=== PATIENT | male | born 1990 | race Caucasian/White ===

== ENCOUNTER 2021-08-15 07:31 | Outpatient (CLI) | payer OTHER, SELFPAY ==
--- NOTE | 2021-09-05 13:07 | WPDSLEEPSTUD ---
Sleep Study Date of Study: 08/15/21 <Kitty Ervin DO - Last Filed: 09/05/21 13:43> Ordering Provider: Nicholas Dinh MD <Kitty Ervin DO - Last Filed: 09/05/21 13:43> Interpreting Physician: Kitty Ervin DO <Kitty Ervin, DO - Last Filed: 09/05/21 13:43> Sleep Study Type: Polysomnogram <Kitty Ervin DO - Last Filed: 09/05/21 13:43> Height: 1.88 m <Kitty Ervin DO - Last Filed: 09/05/21 13:43> Weight: 190.88 kg <Kitty Ervin DO - Last Filed: 09/05/21 13:43> Body Mass Index: 54.0 <Kitty Ervin DO - Last Filed: 09/05/21 13:43> Neck Circumference (inches): 20.5 <Kitty Ervin DO - Last Filed: 09/05/21 13:43> Hamilton: 5 <Kitty Ervin DO - Last Filed: 09/05/21 13:43> Reason for Sleep Study Sleep-onset insomnia and multiple nighttime awakenings <Kitty Ervin DO - Last Filed: 09/05/21 13:43> Sleep History The patient is a 31-year-old male with hypertension and generalized anxiety disorder that had a PSG ordered by his primary care physician due to sleep onset insomnia and multiple nighttime awakenings. The patient states that he occasionally awakens from sleep short of breath. He rarely awakens at night with heartburn, belching or cough. He constantly snores loud enough that others complain. He occasionally has trouble sleeping when he has a cold. He denies waking up gasping for air throughout the night. He occasionally has breathing problems at night observed by others. He occasionally sweats excessively at night. He rarely notices heart palpitations or irregular heartbeats during the night. He frequently falls asleep during the day but never while driving. He occasionally has trouble at work due to sleepiness. He denies sleep paralysis, cataplexy and hypnagogic / hypnopompic hallucinations. He rarely has nightmares. He frequently has thoughts racing through his mind. He constantly feels sad, depressed and anxious. He frequently has muscular tension. He occasionally notices parts of his body jerk and kicking throughout the night. He frequently has crawling and aching feelings in his legs. He denies leg pain during the night. He occasionally grinds his teeth during sleep but rarely awakens with a morning type pain. He is frequently bothered by pain during the day and awakened by pain during the night. He constantly wakes up feeling stiff in the morning with sore and achy muscles. He goes to bed at 3:00 a.m. on weekdays and between 2 and 3:00 a.m. on the weekends. It takes him a minimum of an hour to fall asleep. He wakes up between 3-5 times per night. When he awakens, he will use the restroom, get a drink or stay in bed. It takes him 15 minutes to fall back asleep. He wakes up between 6 and 7:00 a.m. on both weekdays and weekends. He will stay in bed between 1 and 2 hours after waking up in the morning. He typically gets between 6 and 8 hours of sleep per night. The patient currently lives with his parents and brother. He works the evening shift from 2:00 p.m. to 11:00 p.m.. He does drink caffeinated beverages within 2 hours of bedtime. He does engage in physical exercise before bedtime. He does watch television before falling asleep. He does take naps in the afternoon or evening but they are not refreshing. The patient consumes 4-10 caffeinated beverages per day. He denies alcohol and recreational drug use. <Kitty Ervin, - Last Filed: 09/05/21 13:43> Sleep Procedure This test was performed using the [employer] multiple channel system including EOG, EEG, submental EMG, EKG, nasal and oral airflow using thermistors and nasal pressure sensors, chest and abdominal belts for body position data, and pulse oximetry. Video monitoring was also performed. The study was scored using CMS guidelines. <Kitty Ervin, DO - Last Filed: 09/05/21 13:43> Sleep Architectu
[2021-09-05 13:10] VITALS: BMI 54.0
== END 2021-08-16 06:08 | disposition home or self-care (01) ==
LOC: ANHCSM 07:32
PROVIDERS: PCP Family Medicine; Visit Provider Family Medicine
DX: G47.33 Obstructive sleep apnea (adult) (pediatric) (principal)
CPT/HCPCS: 95810

== ENCOUNTER 2024-04-15 01:32 | Day surgery (SDC) | payer OTHER, SELFPAY ==
[2024-04-03 15:14] VITALS: BMI 43.7
[2024-04-15 07:43] VITALS: BP 145/79; PULSE 79; RESP 18; TEMP 36.5; O2SAT 98; BMI 45.8
--- NOTE | 2024-04-15 07:52 | WPDANESEPP ---
Anes - Eval Pre Procedure Procedure: Operation Date: 04/15/24 09:00 Proposed Procedures p Screening Colonoscopy - Dave Onofre DO Date/Time: 04/15/24 07:52 Pre Op Diagnosis: Family History of Colon Cancer Patient Data Age: 34 Gender: M Height: 1.88 m Weight: 161.8 kg Last Vital Signs Temp 36.5 C 04/15/24 07:43 Pulse 79 04/15/24 07:43 Resp 18 04/15/24 07:43 BP 145/79 H 04/15/24 07:43 Pulse Ox 98 04/15/24 07:43 O2 Del Method Room Air 04/15/24 07:43 Allergies Allergy/AdvReac Type Severity Reaction Status Date / Time No Known Allergies Allergy Verified 04/15/24 07:42 Home Medications Medication Instructions Recorded Confirmed Type losartan 50 mg-hydrochlorothiazide 1 tablet PO DAILY 04/03/24 04/15/24 History 12.5 mg tablet Patient hx anesthesia problems: none Family hx anesthesia problems: none Results Review: All pre-operative results and documents have been reviewed as part of the pre-operative evaluation. [facility] Past Medical History Medical History (Updated 04/15/24 @ 07:54 by Kelli Mendieta CRNA) HTN (hypertension) Morbid obesity with BMI of 40.0-44.9, adult Social History Social History Smoking status: Never smoker Substance use type: does not use Living arrangements: with family Exam Day of Procedure 04/15/24 07:52 Patient weight: morbidly obese Heart: regular rate and rhythm Lungs: clear to auscultation Airway: Mallampati scale class II Neurological: alert and oriented
[2024-04-15] MEDS: LACTATED RINGERS 1,000 ML 150 ML IV CONT (07:57)
--- NOTE | 2024-04-15 08:48 | PM.IMHP ---
H&P: HPI History of Present Illness Date/Time: 04/15/24 08:48 Chief Complaint: family history of colon cancer Narrative: this is a 34-year-old man who presents for colonoscopy. He has never had a colonoscopy before. He has a family history of colon cancer in his sister who was diagnosed at the age of 38. Denies any hematochezia or melena. Review of Systems Review of Systems: All systems reviewed & are unremarkable except as noted in HPI and below Constitutional: Constitutional: Denies chills, Denies fever(s), Denies headache(s) and Denies weight loss Eyes: Eyes: Denies change in vision ENT: Denies dizziness, Denies headache(s), Denies neck mass and Denies throat swelling Cardiovascular: Cardiovascular: Denies chest pain, Denies lightheadedness and Denies dyspnea Respiratory: Respiratory: Denies cough, Denies dyspnea and Denies wheezing Gastrointestinal: Gastrointestinal: Denies abdominal pain, Denies change in bowel habits, Denies nausea and Denies vomiting Genitourinary: Genitourinary: Denies hematuria and Denies dysuria Musculoskeletal: Musculoskeletal: Reports as per HPI Integumentary/Breasts: Skin/Breast: Reports as per HPI Neurologic: Denies dizziness and Denies headache(s) Allergic/Immunologic: Allergic/Immunologic: Denies throat swelling and Denies wheezing PMF Past Medical History Medical History (Updated 04/15/24 @ 08:49 by Dave Onofre DO) HTN (hypertension) Morbid obesity with BMI of 40.0-44.9, adult Social History Social History Smoking status: Never smoker Substance use type: does not use Living arrangements: with family Meds Home Medications and Allergies Home Medications Medication Instructions Recorded Confirmed Type losartan 50 mg-hydrochlorothiazide 1 tablet PO DAILY 04/03/24 04/15/24 History 12.5 mg tablet Allergies Allergy/AdvReac Type Severity Reaction Status Date / Time No Known Allergies Allergy Verified 04/15/24 07:42 Vital Signs Vital Signs - 24 hr 04/15/24 07:43 Temperature 36.5 C Pulse Rate 79 Respiratory Rate 18 Blood Pressure 145/79 H Pulse Oximetry 98 Oxygen Delivery Room Air Exam Const: General: no acute distress and alert Orientation/consciousness: patient oriented x3 HENMT: Head: normocephalic and atraumatic Ears: hearing grossly normal bilaterally Face/Nose/Sinus: Normal nares present Mouth: Yes Normal oral and palatal mucosa present Eyes: Periorbital: periorbital findings normal Sclera: sclerae normal EOM: EOMs intact bilaterally Neck: Neck: normal visual inspection, no lymphadenopathy and trachea midline Chest: Chest palpation & inspection: normal inspection of the chest Resp: Effort & Inspection: normal respiratory effort Auscultation: clear to auscultation bilaterally Cardio: Jugular venous distension: no JVD Rate: regular rate Rhythm: regular rhythm Heart sounds: S1 normal heart sound present and S2 normal heart sound present Peripheral pulses: Peripheral pulses 2+ throughout GI: Inspection: normal to inspection GI Palp: Yes Soft to palpation, No Tenderness to palpation present (GI), No Guarding due to palpation present (GI) and No Rebound tenderness present Percussion: Yes normal to percussion Auscultation: normal bowel sounds : General: Yes no CVA tenderness Back/Spine/Pelvis: Back: no CVA tenderness Neuro: General: patient oriented x3, no focal motor deficits and CN's II-XI intact bilaterally Cognition (Neuro): normal cognition Speech: normal speech Motor exam (neuro): 5/5 motor strength present throughout Extrem: General: capillary refill normal and no clubbing, cyanosis or edema Assessment and Plan Assessment and plan (1) Family history of colon cancer: Code(s): Z80.0 - Family history of malignant neoplasm of digestive organs Status: Acute Assessment and Plan: I have recommended colonoscopy. I hav
--- NOTE | 2024-04-15 09:05 | P.PNAN_ITS ---
Anes - Eval Final PreProcedure Day of Procedure 04/15/24 09:05 ASA classification: III Emergent: no Anesthetic plan: proceed Anesthesia type and monitoring: general and standard monitoring Results Review: All pre-operative results and documents have been reviewed as part of the pre- operative evaluation. Informed Consent: The patient's anesthetic plan and its attendant risks and benefits were discussed with the patient/family/POA. Questions were solicited and answers provided to the satisfaction of the patient/family/POA.
[2024-04-15 09:35] VITALS: BP 136/78; PULSE 70; RESP 18; O2SAT 99
[2024-04-15 09:45] VITALS: BP 138/84; BP 142/92; PULSE 71; PULSE 75; RESP 18; O2SAT 97
== END 2024-04-15 09:59 | disposition home or self-care (01) ==
PROVIDERS: PCP Family Medicine; Visit Provider Surgery
PROC: 0DJD8ZZ Inspection of Lower Intestinal Tract, Via Natural or Artificial Opening Endoscopic (ICD-10-PCS; CPT 45378; principal; 2024-04-15 09:00)
DX: Z12.11 Encounter for screening for malignant neoplasm of colon (principal); Z80.0 Family history of malignant neoplasm of digestive organs; I10 Essential (primary) hypertension; E66.01 Morbid (severe) obesity due to excess calories; Z68.42 Body mass index [BMI] 45.0-49.9, adult
CPT/HCPCS: 45378; J7120